=== PATIENT | female | born 2000 | race Caucasian/White ===

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

== ENCOUNTER 2020-12-02 22:34 | Emergency (ER) | payer SELFPAY ==
[~2020-12-02] VITALS: Ht 165.1 cm; Wt 90.9 kg
[2020-12-02 23:29] VITALS: Ht 165.1 cm; Wt 90.9 kg
[2020-12-03 00:02] LABS: BASOPHILS 0.5 % (0-2); EOSINOPHILS 1.7 % (0-7); HEMATOCRIT 41.6 % (36.0-48.0); LYMPHOCYTES 17.2 % (15-50); MCH 31.9 pg (26.0-34.0); MCHC 33.6 g/dL (31.0-37.0); MCV 94.9 fL (80.0-100.0); MONOCYTES 10.7 % (2-11); NEUTROPHILS 69.9 % (40-80); PLATELET COUNT 253 10x3/uL (130-400); RBC 4.38 10x6/uL (4.00-5.40); RDW 13.3 % (11.5-14.5); WBC 12.3 10x3/uL (4.8-10.8)
[2020-12-03 00:16] LABS: CALC OSMOLALITY 276 mosm/kg (275-300); CALCIUM 8.5 mg/dL (8.5-10.1); CARBON DIOXIDE 26.1 mmol/L (21.0-32.0); CHLORIDE - SERUM 106 mmol/L (98-107); CREATININE - SERUM 0.7 mg/dL (0.6-1.3); GLUCOSE 98 mg/dL (74-106); SODIUM 139 mmol/L (136-145); UREA NITROGEN 11 mg/dL (7-18); eGFR NON AFRICAN AMERICAN > 90 mL/min (90-120)
[2020-12-03 00:22] LABS: ALBUMIN 3.8 g/dL (3.4-5.0); ALKALINE PHOSPHATASE 59 U/L (30-120); ALT (SGPT) 16 U/L (10-68); PROTEIN - SERUM 7.2 g/dL (6.4-8.2)
[2020-12-03 01:04] LABS: HCG SERUM POSITIVE (NEGATIVE)
[2020-12-03 01:54] LABS: AMORPHOUS SEDIMENT RARE LPF (<FEW); BACTERIA MOD HPF (<MOD); BILIRUBIN NEGATIVE (NEGATIVE); KETONE NEGATIVE mg/dL (< 1+); NITRITE NEGATIVE (NEGATIVE); SQUAMOUS EPITHELIAL 5 HPF (0-4); UROBILINOGEN NORMAL mg/dL (< 2); WHITE CELLS - URINE 28 HPF (0-4)
[2020-12-03 02:02] VITALS: BP 126/78
[2020-12-03] MEDS ORDERED: MACROBID100 MG PO (05:15)
== END 2020-12-03 05:36 | disposition home or self-care (01) ==
LOC: D.ER 22:34
PROVIDERS: Emergency Medicine
DX: O36.80X0 Pregnancy with inconclusive fetal viability, not applicable or unspecified (principal)